=== PATIENT | male | born 1965 | race Caucasian/White ===

== ENCOUNTER 2023-03-28 09:52 | Day surgery (SDC) | payer OTHER, SELFPAY ==
[2023-03-28] VITALS (9 sets, daily range): BP systolic 117–130; BP diastolic 76–88; PULSE 74–88; RESP 16; TEMP 36.1–37; O2SAT 95–99; BMI 26.6
--- NOTE | 2023-03-28 10:35 | HP.PCM_ITS ---
History and Physical Date of Admission: 03/28/23 Intake Vital Signs 03/10/2308:42 Height 5 ft 9 in Weight: 186 lb BMI 27.4 BP 133/87 H Blood Pressure Location Rt brachial Position Sitting Respiration 18 Pulse 79 Pulse Source Monitor Temp 97.4 F L Temp Source Temporal Pulse Oximetry (%) 99 Oxygen Delivery Method room air Intake Visit Reasons: BILATERAL INGUINAL HERNIAS Chief Complaint: bilateral inguinal hernias [employer] Professor Required: No Is patient in pain?: Yes (burning pain intermittently ) Allergies No Known Allergies Allergy (Unverified 03/10/23 08:44) Medications cholecalciferol (vitamin D3) 50 mcg (2,000 unit) capsule 50 mcg PO DAILY 03/10/23 [History Confirmed 03/10/23] elderberry fruit 350 mg capsule mg PO DAILY 03/10/23 [History Confirmed 03/10/23] vitamin B complex (B Complex-Vitamin B12 tablet) 1 tab PO DAILY 03/10/23 [Hi story Confirmed 03/10/23] PFSH Surgical History (Updated 03/10/23 @ 08:41 by Beverlye Chavis LPN) S/P inguinal hernia repair Family History Mother Colon cancerFather Myocardial infarctionGrandmother Thyroid disorder Cancer thyroid Social History (Updated 03/10/23 @ 08:42 by Beverley Chavis LPN) Smoking Status: Never smoker alcohol intake: current alcohol intake frequency: holidays/special occasions only substance use type: does not use HPI HPI HPI: Patient is a 57-year-old male here with bilateral inguinal hernias. The patient had his right inguinal hernia fixed in 1996 and his left inguinal hernia fixed as a child. Patient reports the right side is bothering him more and it is larger. He had a recent CT scan that shows bilateral inguinal hernias containing fat. ROS General General: No weight change or fatigue HEENT HEENT: No difficulty swallowing Endo Endocrine: No thyroid disease Musc Musculoskeletal: No back problems or arthritis Cardio Cardiovascular: No pacemaker, heart disease, atrial fibrillation, high blood pressure, heart attack, heart stent, palpitations or chest pain Psych Psychiatric: No depression or anxiety Resp Respiratory: No shortness of breath, No cough, No COPD, No asthma and No emphysema Gastro Gastrointestinal: Yes abdominal pain and Yes hemorrhoids Additional Details: Bilateral inguinal hernias Lucian Hematologic: No blood thinners Exam Const General: cooperative Orientation: alert and oriented x3 HENMT Head: normal to inspection Neck Neck: normal visual inspection and full ROM Chest Chest palpation & inspection: normal inspection of the chest Resp Effort & Inspection: normal respiratory effort Auscultation: clear to auscultation bilaterally Cardio Rate: regular rate Rhythm: regular rhythm GI Inspection: non-distended Palpation: soft, hernia indirect inguinal bilaterally and nontender Skin General: no rashes or lesions noted Neuro General: patient alert and patient oriented x3 Extrem General: full ROM Psych Appearance: grossly normal Mental Status: mental status grossly normal Assessment and Plan Assessment and Plan (1) Bilateral inguinal hernia: Status: Acute Qualifiers: Obstruction and gangrene presence: without obstruction or gangrene Recurrence: recurrent Qualified Code(s): K40.21 - Bilateral inguinal hernia, without obstruction or gangrene, recurrent Plan: The patient had a recent CT scan showed bilateral inguinal hernias containing fat. The right side is bothering him much more than the left. He does see get occasional twinges on the left I did feel a small amount of fat poking through the inguinal ring on the left. There is a large inguinal hernia on the right. I recommended robotic assisted laparoscopic bilateral inguinal hernia repair with mesh. The patient has had both of these hernias fixed in the past in open fashion. I discussed possibility of having to convert to open surgery if the scar tissue was too great. I discussed the surgery in detail as well as the risks of bleeding, infection, injury to other organs such as the bowel or bladder or blood supply of the testicle. Patient understands the risks and is willing to proceed. Sanjay Dalton MD Pager: [facility] [address] [place] [address], [address] [place] [address] Office: I have examined the patient and the H&P has been reviewed. There are no clinical changes since date of exam.
[2023-03-28] MEDS: Lactated Ringers 1,000 ML 15 ML IV (10:43)
[2023-03-28] MEDS: Cefazolin 2 GM in 0.9% Normal Saline (100mL Bag) 100 ML IV (11:14)
[2023-03-28] MEDS: Bupivacaine Mpf 0.5% 30 ML VIAL (12:10)
--- NOTE | 2023-03-28 12:25 | PCM.OPRPT ---
Report of Operation Date of Procedure: 03/28/23 Pre-Operative Diagnosis: Recurrent bilateral inguinal hernias Post-Operative Diagnosis: Recurrent right inguinal hernia Surgery/Procedure Performed:: Robotic assisted laparoscopic recurrent right inguinal hernia repair with mesh Type of Anesthesia: General/Regional Specimen's removed: None Estimated Blood Loss (mL): 10 Description of Procedure: Patient was brought back to the operating room and general anesthesia was induced. The abdomen was prepped and draped in usual sterile fashion. Midline incision was made superior to the umbilicus and then the fascia was grasped and elevated. A Veress needle was placed into the abdomen and a drop test was performed. Next the abdomen was insufflated to 15 mmHg and the needle was removed. A port was placed and the camera was placed to the port and there were no injuries from entry. Patient was placed into Trendelenburg position and the groins were inspected. The patient did not have any openings in the left groin suggestive of a hernia. The peritoneum was flat with no dimpling and no signs of femoral or direct or indirect inguinal hernia. The CT scan must have been showing a small lipoma read as a an inguinal hernia but this is likely incorrect. Patient is also mostly complaining of pain on his right side with only minor twinges on the left. There was a direct hernia on the right. After this the plan was changed to only repair the right side as I did not believe the left side was having a recurrence and I did not believe it was worth the risk of getting into the scar tissue and dissecting everything if I was not able to appreciate an objective hernia. Next under direct visualization an 8 mm port was placed in the right lateral abdominal sidewall as well as left lateral abdominal sidewall and then the robot was docked. Electrocautery scissors were used to make an incision in the peritoneum in the right lower quadrant. Dissection was carried inferiorly until the hernia sac was encountered and reduced. Dissection was also carried out over the indirect space where the prior repair had occurred. The peritoneum was taken down enough space was allowed. A lipoma was removed from this cord. It was reduced and then placed behind the mesh after the mesh was placed. Next a piece of ProGrip mesh was placed over the entire right groin covering both the direct space as well as the indirect space. Next the peritoneum was reapproximated using a running 3 OV lock suture. There is a small opening in the peritoneum where the prior repair was held. This was closed with a 3-0 Vicryl suture. At the end of the case the mesh was completely covered by peritoneum. The instruments were removed and the robot was undocked. The abdomen was allowed to desufflate. The ports were removed and the incisions were closed with interrupted 4-0 Monocryl sutures and injected with local anesthetic. Steri-Strips and bandages were applied. Scrotum was checked at the end the case and contain both testicles. Patient was awoken and taken to PACU in stable condition. Grafts/Implants Used: ProGrip mesh on the right Admit VTE Documentation VTE Mechan Device Prophylaxis: SCD's
--- NOTE | 2023-03-28 12:28 | DCINST_ITS ---
Discharge Instructions Diet Discharge Diet: Light diet - advance as tolerated Activity Discharge Activity: May Not Drive (for 2-3 days or while taking narcotic pain meds.) and May Shower (with the bandage in place 1-2 days after surgery.) Lifting Restrictions: 20 pounds for 4 weeks Additional Activity Instructions:: Climbing stairs is fine, walking is encouraged. Sitting in bed may be uncomfortable. Sitting up using your lateral muscles (sitting up sideways) is usually more comfortable. Do not drive, work heavy equipment or sign legal documents for 24 hours. If your hernia repair was an inguinal repair, you may have scrotal swelling, an ice pack and/or athletic support can provide more comfort. Pain medications may cause nausea, you should typically eat light foods as you take your pain medications. Pain medications may also cause constipation. If you have difficulty with this, discuss with your doctor. Dressing / Incision Call your doctor if your incision/area has: Continuous Slow Oozing, Sudden Increased Bleeding, Increased Pain/ Swelling, Increased Redness and Foul Smelling Discharge Call your doctor if you observe: Fever of 101 or Higher Suture Line Care: Avoid Pulling/Pushing and Avoid Pinching/Bending Remove Dressing in: 2 days (Remove clear bandages in 2 days, remove Steri-Strips in 7 to 10 days.) Follow Up Care Please Follow Up With: Sanjay Dalton MD When: Please call to schedule 2 week follow up appointment. [phone] Test Results: Test results from this visit will be discussed in further detail at your follow- up appointment, if applicable. Discharge Plan Admission Attending Provider: Sanjay Dalton Primary Care Provider: Judd Hoyt Instructions Additional Instructions / Restrictions: Alternate ibuprofen and Tylenol for pain, oxycodone for breakthrough pain. Discharge Orders/Prescriptions Prescriptions: New oxycodone 5 mg tablet 5 - 10 mg PO Q6H PRN (Reason: pain) 5 Days Qty: 10 0RF No Action vitamin B complex [B Complex-Vitamin B12] Tablet 1 tab PO DAILY cholecalciferol (vitamin D3) 50 mcg (2,000 unit) capsule 50 mcg PO DAILY elderberry fruit 350 mg capsule 350 mg PO DAILY Other Ambulatory Orders: 12 Lead EKG (Routine) Timeframe: [id number] Location: None Selected Ordered By: Dr. Yunior Fish Referrals / Follow Up: Judd Hoyt DO [Primary Care Provider] - Disposition Disposition (needs filled in before D/C Order can be placed): Home, Self Care
[2023-03-28] MEDS: Tamsulosin HCl 0.4 MG Capsule 0.8 MG PO (15:47)
== END 2023-03-28 15:55 | disposition home or self-care (01) ==
LOC: SDC 09:53 → AC 09:55
PROVIDERS: PCP Family Medicine; Referring Provider Surgery; Visit Provider Surgery
PROC: (CPT 49651; principal; 2023-03-28 11:10)
DX: K40.21 Bilateral inguinal hernia, without obstruction or gangrene, recurrent (principal)
CPT/HCPCS: 49651; S2900; 00840; 93005; J7120; J2405